=== PATIENT | female | born 1980 | race African-American/Black ===

== ENCOUNTER 2016-12-10 19:18 | Emergency (ER) | payer OTHER ==
[~2016-12-10] VITALS: Ht 170.2 cm; Wt 122.5 kg
[~2016-12-10 19:18] MED LIST: IBUP-1060; [UNRECOGNIZED DRUG - REMARK]; water pill
[2016-12-10 19:40] VITALS: BP 149/85
[2016-12-10] MEDS ORDERED: HYDR-971 PO (20:08)
[2016-12-10] MEDS ORDERED: NAPR550T PO (20:08)
--- NOTE | 2016-12-10 20:08 | PHYS DOC ---
Past Medical History Past Medical History: Hypertension Past Surgical History: Cholecystectomy, Tubal ligation, Other Additional Past Surgical Histo: GASTRIC SLEEVE Alcohol Use: Occasionally Drug Use: None Adult General Chief Complaint Chief Complaint: LOWER EXT PAIN HPI HPI Patient is a 36 year old female presents emergency room with complaint of left anterior thigh pain for approximately 4 days. Patient states that she was a republican, consuming alcohol when she attempted to perform splits and injured her left thigh. She does not remember which direction she was performing the splint due to the influence of alcohol. She states she's been having persistent pain in that time. She denies any previous injuries to her left quadriceps. She denies any history of bone forming disorders. Review of Systems Review of Systems Constitutional: Denies fever or chills [] Eyes: Denies change in visual acuity, redness, or eye pain [] HENT: Denies nasal congestion or sore throat [] Respiratory: Denies cough or shortness of breath [] Cardiovascular: No additional information not addressed in HPI [] GI: Denies abdominal pain, nausea, vomiting, bloody stools or diarrhea [] : Denies dysuria or hematuria [] Musculoskeletal: Denies back pain or joint pain [] Integument: Denies rash or skin lesions [] Neurologic: Denies headache, focal weakness or sensory changes [] Endocrine: Denies polyuria or polydipsia [] Allergies Allergies Allergies Coded Allergies Type Severity Reaction Last Updated Verified No Known Drug Allergies 10/17/13 No Physical Exam Physical Exam Constitutional: Well developed, well nourished, no acute distress, non-toxic appearance. [] HENT: Normocephalic, atraumatic, bilateral external ears normal, oropharynx moist, no oral exudates, nose normal. [] Eyes: PERRLA, EOMI, conjunctiva normal, no discharge. [] Neck: Normal range of motion, no tenderness, supple, no stridor. [] Cardiovascular:Heart rate regular rhythm, no murmur [] Lungs & Thorax: Bilateral breath sounds clear to auscultation [] Abdomen: Bowel sounds normal, soft, no tenderness, no masses, no pulsatile masses. [] Skin: Warm, dry, no erythema, no rash. [] Back: No tenderness, no CVA tenderness. [] Extremities: Left thigh is normal in appearance. There is tenderness to palpation to the quadriceps musculature without palpable defect or deformity. Patient is able to extend her leg without high riding patella. Patient is able to maintain extension with pressure applied. Her extremity is neurovascular intact with capillary refill less than 2 seconds. Neurologic: Alert and oriented X 3, normal motor function, normal sensory function, no focal deficits noted. [] Psychologic: Affect normal, judgement normal, mood normal. [] Current Patient Data Vital Signs Vital Signs Date Time Temp Pulse Resp B/P Pulse Ox O2 Delivery O2 Flow Rate FiO2 12/10/16 19:40 98.5 77 20 98 Room Air 98.5 EKG EKG [] Radiology/Procedures Radiology/Procedures [] Course & Med Decision Making Course & Med Decision Making Pertinent Labs and Imaging studies reviewed. (See chart for details) [] Dragon Disclaimer Dragon Disclaimer This electronic medical record was generated, in whole or in part, using a voice recognition dictation system. Departure Departure Impression: Primary Impression: Strain of left quadriceps Disposition: HOME, SELF-CARE Condition: GOOD Referrals: UNKNOWN PCP NAME (PCP) Patient Instructions: Crutch Use, [id number], Muscle Strain, [id number] Additional Instructions: 1. Use the crutches for partial weightbearing. 2. Review the discharge instructions for self-care and reasons to return to the emergency department. 3. Take the medication as prescribed. 4. Contact [facility] in the morning to schedule follow-up for reexamination. Scripts Hydrocodone/Apap 5-325 ([place] 5-325 Tablet)1 Each Tablet1 Tab PO PRN Q6HRS PRN PAIN #15 TAB Prov:SAW FAY 12/10/16 Naproxen Sodium (Anaprox Ds)550 Mg [id number] Mg PO every 12 hours #20 Prov:SAW FAY 12/10/16 SAW FAY Dec 10, 2016 20:08
== END 2016-12-10 20:17 | disposition home or self-care (01) ==
LOC: ER 19:18
DX: S76.112A Strain of left quadriceps muscle, fascia and tendon, initial encounter (principal); I10 Essential (primary) hypertension; Z90.49 Acquired absence of other specified parts of digestive tract; Z98.51 Tubal ligation status; Z98.84 Bariatric surgery status; X58.XXXA Exposure to other specified factors, initial encounter; Y93.89 Activity, other specified; Y92.89 Other specified places as the place of occurrence of the external cause; Y99.8 Other external cause status
CPT/HCPCS: 99283